=== PATIENT | male | born 1995 | race Caucasian/White ===

== ENCOUNTER 2020-01-02 10:24 | Emergency (ER) | payer OTHER, SELFPAY ==
[2020-01-02 10:35] VITALS: BP 112/68; PULSE 70; RESP 14; TEMP 36.7; O2SAT 100
--- NOTE | 2020-01-02 10:44 | ED.GENADULT ---
HPI - General Adult General Chief complaint: Skin/Abscess/Foreign Body Stated complaint: rash on righ side Time Seen by Provider: 01/02/20 10:44 Source: patient and RN notes reviewed Mode of arrival: ambulatory Limitations: no limitations History of Present Illness HPI narrative: 24-year-old male presents with complaints of red, raised, and painful rash to right side for the past 5-6 days. Aloe Vera itching cream without relief. Denies new changes in personal hygiene products or laundry detergent. No new foods or medications. No swelling, burning, bleeding, or drainage. Denies fever, chills, headaches, weakness, myalgia, facial swelling, or tongue swelling. Denies chest pain or dyspnea. The patient reports he have not been diagnosed with COVID-19. The patient reports he is not waiting for the results of a COVID-19 lab test. The patient reports he do not have fever, chills, or weakness. The patient reports he do not have a new or worsening cough or shortness of breath. Denies chest pain. The patient reports he do not have any rhinorrhea, congestion, sore throat, nausea, vomiting, abdominal pain, and diarrhea. Tolerating po intake well. Denies recent traveling. Denies concerns for COVID-19 or exposures been home with limited outdoor exposure except for essential household needs, work, and return home. At this time, patient is not suspected of having COVID-19. Some parts of this dictation were generated by voice recognition software and may contain typographical and/or grammatical inaccuracies. Related Data Allergies Allergy/AdvReac Type Severity Reaction Status Date / Time No Known Allergies Allergy Verified 01/02/20 10:41 Review of Systems Review of Systems: Narrative: CONSTITUTIONAL: Denies fever, chills, sweats. EYES: Denies visual changes, redness, discharge. ENT: Denies rhinorrhea, congestion, sore throat, otalgia. CARDIOVASCULAR: Denies chest pain, palpitations, edema. RESPIRATORY: Denies dyspnea, wheezing, cough. GASTROINTESTINAL: Denies abdominal pain, nausea, vomiting, diarrhea. GENITOURINARY: Denies dysuria, hematuria, abnormal discharge. SKIN: Complains of red, raised, painful rash to RT side. Denies drainage. MUSCULOSKELETAL: Denies acute back pain, joint pain, or myalgia. NEUROLOGIC: Denies numbness, or focal weakness. PSYCHIATRIC: Denies anxiety or depression. All systems reviewed & are unremarkable except as noted in HPI and below. [facility] Past Medical History Medical History (Updated 01/02/20 @ 11:02 by SANTOSH Durand) Asthma childhood Surgical History Surgical History (Updated 01/02/20 @ 10:57 by SANTOSH Durand) History of tonsillectomy Family History Family History (Updated 01/02/20 @ 10:59 by SANTOSH Durand) Father Alive and well Mother Hypertension Anxiety Social History Social History (Updated 01/02/20 @ 16:30 by SANTOSH Durand) Smoking status: Light tobacco smoker Tobacco type: e-cigarettes/vaping Second hand tobacco smoke exposure: No Alcohol intake: current Alcohol use details: Occasional Substance use: never Living arrangements: other Additional living arrangements comments: live in girlfriend Occupation/Education: occupation Gender identity (if verbalized by the patient): Male Sexual Orientation (if Verbalized by the Patient): Straight or Heterosexual Comments At time of signature, agree with nurse past medical, surgical, social, and family history. There is no relevant family history pertinent to the presenting complaint. Exam Narrative: Exam Narrative: GENERAL: This is a well-nourished, well-developed patient, in no apparent distress. Talking in full sentences without deficit and ambulate with steady gait without dyspnea. HEAD: normocephalic, atraumatic. EYES: PERRL. Sclera clear/white. Vision is grossly intact. THROAT: Mucous membranes moist, posterior pharynx clear. NECK: Neck supple, non-tender
== END 2020-01-02 11:07 | disposition home or self-care (01) ==
PROVIDERS: Emergency Provider Nurse Practitioner Family
DX: B02.9 Zoster without complications (principal); F17.210 Nicotine dependence, cigarettes, uncomplicated
CPT/HCPCS: 99213; G0463

== ENCOUNTER 2020-02-10 18:45 | Emergency (ER) | payer OTHER, SELFPAY ==
[2020-02-10 19:03] VITALS: BP 116/65; PULSE 56; RESP 20; TEMP 37.3; O2SAT 100
--- NOTE | 2020-02-10 19:08 | ED.GENADULT ---
HPI - General Adult General Chief complaint: Eye Problems Stated complaint: right eye pain Time Seen by Provider: 02/10/20 19:08 Source: patient Mode of arrival: ambulatory Limitations: no limitations History of Present Illness HPI narrative: 24-year-old male patient presents to the [facility] with complaints of right eye pain and irritation. Patient states that yesterday he was doing some yard work and landscaping and states he thinks he got some debris in his eyes especially his right eye. Patient states that he did go and take out his contacts yesterday and washed out his eyes. Patient states he has been leaving his contacts since incident yesterday and today he states that he woke up and his eye was swollen, red, itchy and states he has had some sensitivity to light. Patient states he feels like something is in his eye. Patient states he is also had some clear watery discharge and tearing. Related Data Allergies Allergy/AdvReac Type Severity Reaction Status Date / Time No Known Allergies Allergy Verified 02/10/20 19:02 Review of Systems Review of Systems: Narrative: CONSTITUTIONAL: Denies fever, chills, or sweats. EYES: Denies visual changes, positive right eye redness, irritation and clear discharge. ENT: Denies rhinorrhea, congestion, sore throat, or otalgia. CARDIOVASCULAR: Denies chest pain, palpitations, or edema. RESPIRATORY: Denies cough or dyspnea. GASTROINTESTINAL: Denies abdominal pain, nausea, vomiting, or diarrhea. GENITOURINARY: Denies dysuria or hematuria. SKIN: Denies rash or itching. MUSCULOSKELETAL: Denies back pain, joint pain, or myalgia. NEUROLOGIC: Denies headache, numbness, or weakness. PSYCHIATRIC: Denies anxiety or depression. [facility] Past Medical History Medical History Asthma childhood Surgical History Surgical History History of tonsillectomy Family History Family History Father Alive and well Mother Hypertension Anxiety Social History Social History Smoking status: Light tobacco smoker Tobacco type: e-cigarettes/vaping Second hand tobacco smoke exposure: No Alcohol intake: current Substance use: never Additional living arrangements comments: live in girlfriend Gender identity (if verbalized by the patient): Male Comments At the time of my signature I agree with nursing past medical history, surgical, social, and family history. There is no relevant family history pertinent to the presenting complaint. Exam Narrative: Exam Narrative: GENERAL: Well-appearing, well-nourished, and in no acute distress. HEAD: Normocephalic, atraumatic. EYES: PERRLA and EOM intact without limitation or complaint of pain, no periorbital soft tissue swelling ,no erythema, warmth or tenderness noted, no obvious deformity. No crusting or swelling.clear tearing in draining.positive photophobia. No nystagmus No FB or lesion on lid eversion. Corneas grossly clear, no obvious FB or hyphens/hypopyon. injection to sclera right eye. Lids and lashes clear. Subconjunctival hemorrhage present to the right eye. Upon exam the Ellis lamp it does appear that patient has multiple corneal abrasions noted to the 1-2 o'clock area of the cornea. ENT: Nares clear, no rhinorrhea or epistaxis. Mucous membranes moist. NECK: Supple. No lymphadenopathy CHEST: Clear to auscultation. No respiratory distress. HEART: Regular rate and rhythm. No murmur heard. Normal peripheral pulses. ABDOMEN: Soft, nontender, nondistended, normal active bowel sounds. EXTREMITIES: Normal range of motion. No edema. SKIN: Warm, dry, no rash. NEURO: No focal deficits. Alert and oriented x3. Course Vital Signs Vital signs: Vital Signs Temperature 37.3 C 02/10/20 19:03 Pulse Rate 56 L 02/10/20 19:03 Respirator
== END 2020-02-10 19:29 | disposition home or self-care (01) ==
PROVIDERS: Emergency Provider Nurse Practitioner Family
DX: S05.01XA Injury of conjunctiva and corneal abrasion without foreign body, right eye, initial encounter (principal); X58.XXXA Exposure to other specified factors, initial encounter; Y93.H2 Activity, gardening and landscaping; F17.200 Nicotine dependence, unspecified, uncomplicated; H11.31 Conjunctival hemorrhage, right eye
CPT/HCPCS: 99213; A9270; G0463

== ENCOUNTER 2020-09-13 14:39 | Emergency (ER) | payer SELFPAY ==
[2020-09-13 14:48] VITALS: BP 143/74; PULSE 80; RESP 16; TEMP 36.8; O2SAT 99
--- NOTE | 2020-09-13 14:49 | ED.SKABFB ---
HPI - Skin/Abscess/Foreign Bdy General Chief complaint: Skin/Abscess/Foreign Body Stated complaint: Spider Bite Time Seen by Provider: 09/13/20 14:50 Source: patient and RN notes reviewed History of Present Illness HPI narrative: Patient is a 25-year-old male who presents the urgent care with complaints of bite to the back of the right calf. Patient states that started 2 days ago and it seems that the redness and swelling has gotten worse. Patient states that shortly after he noticed the bite he was very sick with high fever . Patient states that that resolved fairly quickly and he currently denies any fever, nausea, vomiting. Patient states that he has not really done anything with the area . Patient has been taking ibuprofen and Benadryl for symptoms. No other acute complaints. No acute distress noted. Patient aware of the plan of care. Some parts of this dictation were generated by voice recognition software and may contain typographical and/or grammatical inaccuracies. Related Data Allergies Allergy/AdvReac Type Severity Reaction Status Date / Time No Known Allergies Allergy Verified 09/13/20 14:58 Review of Systems Review of Systems: Narrative: CONSTITUTIONAL: Denies fever, chills, or sweats. EYES: Denies visual changes, redness, or discharge. ENT: Denies rhinorrhea, congestion, sore throat, or otalgia. CARDIOVASCULAR: Denies chest pain, palpitations, or edema. RESPIRATORY: Denies cough or dyspnea. GASTROINTESTINAL: Denies abdominal pain, nausea, vomiting, or diarrhea. GENITOURINARY: Denies dysuria or hematuria. SKIN: Reports of a red inflamed possible spider bite to the back of the right calf MUSCULOSKELETAL: Denies back pain, joint pain, or myalgia. NEUROLOGIC: Denies headache, numbness, or weakness. All other systems reviewed are negative, except as documented in HPI. [facility] Past Medical History Medical History (Updated 09/13/20 @ 15:04 by SANTOSH Chacko) Asthma childhood Surgical History Surgical History History of tonsillectomy Family History Family History Father Alive and well Mother Hypertension Anxiety Social History Social History Smoking status: Light tobacco smoker Tobacco type: e-cigarettes/vaping Second hand tobacco smoke exposure: No Alcohol intake: current Substance use: never Additional living arrangements comments: live in girlfriend Gender identity (if verbalized by the patient): Male Comments At the time of my signature, I reviewed and agree with the nursing past medical, surgical, social, and family history. There is no relevant family history pertinent to the patient complaint. Exam Narrative: Exam Narrative: GENERAL: This is a well-nourished, well-developed patient, in no apparent distress. HEAD: normocephalic, atraumatic. EYES: PERRL. Sclera clear/white. Vision is grossly intact. EARS: External ears normal NOSE: External nose normal with no obvious nasal discharge, nares without redness, no rhinorrhea. THROAT: Mucous membranes moist NECK: Neck supple SKIN: 11 x 12 irregular area of erythema noted to the back of the right calf with 2 x 2cm firm center with pinpoint drainage noted NEURO: awake, alert, and oriented to person, place and time. There were no obvious focal neurologic abnormalities. EXTREMITIES: No clubbing, cyanosis, or edema. Course Vital Signs Vital signs: Vital Signs Temperature 98.2 F 09/13/20 14:48 Pulse Rate 80 09/13/20 14:48 Respiratory Rate 16 09/13/20 14:48 Blood Pressure 143/74 H 09/13/20 14:48 Pulse Oximetry 99 09/13/20 14:48 Temperature 98.2 F 09/13/20 14:58 Pulse Rate 80 09/13/20 14:58 Respiratory Rate 16 09/13/20 14:58 Blood Pressure 143/74 H 09/13/20 14:58 Pulse Oximetry 99 09/13/20 14:58 Reviewed-patient is informed
[2020-09-13 14:58] VITALS: BP 143/74; PULSE 80; RESP 16; TEMP 36.8; O2SAT 99
== END 2020-09-13 15:08 | disposition home or self-care (01) ==
PROVIDERS: Emergency Provider Nurse Practitioner Family
DX: L03.115 Cellulitis of right lower limb (principal); F17.200 Nicotine dependence, unspecified, uncomplicated
CPT/HCPCS: 99213; G0463